=== PATIENT | female | born 1990 | race Hispanic/Latino ===

== ENCOUNTER 2023-11-03 15:39 | Emergency (ER) | payer SELFPAY ==
[2023-11-03 15:47] VITALS: BP 151/92
--- NOTE | 2023-11-03 16:56 | ED.GENMED ---
History of Present Illness
General
Chief Complaint: Skin Problem
Time Seen by Provider: 11/03/23 16:31
Travel History
Have you had any contact with someone who has COVID-19?: No
Do you have any symptoms of coronavirus? Fever > 100 degrees, chills, cough, shortness of breath, sore throat, loss of taste or smell, muscle aches, or headache?: No
History of Present Illness
History of Present Illness:
33-year-old female presents the emergency department for evaluation of acute on chronic rash to bilateral hands and forearms. She has had this rash for many years and typically uses a steroid cream however the cream is not helping. Primary care is
through the [facility] [place] [facility]. Has never seen a electrolysis engineer
Past History
Past History
ED Past Medical History: HTN
ED Past Surgical History: None
Social History
Tobacco: Non-smoker
Alcohol: None
Drug: None
Personal:
Living: with family
Employment: Other
Family History
Family History: Other
Review of Systems
Review of Systems
Allergies reviewed?: Yes
All Other Systems: ROS reviewed and negative except as documented in HPI and ROS
Phy Exam
Physical Exam
Physical Exam:
GEN: Well appearing, NAD, WDWN
HEENT: Oral mucosa moist, no scleral icterus
Cardiac: Regular rate
Lung: No respiratory distress, no tachypnea
MSK: No gross deformity or injuries
Skin: Good color, no pallor or jaundice, eczematous skin eruption to bilateral dorsal hands and bilateral extensor elbows surfaces
Neuro: AO x3, moves all extremities freely
Psych: Calm, cooperative
Course
Vital Signs
Initial and Last Documented VS:
Initial Vital Signs
Temp Pulse Resp BP Pulse Ox
98.4 F 67 20 151/92 97
11/03/23 15:47 11/03/23 15:47 11/03/23 15:47 11/03/23 15:47 11/03/23 15:47
Last Documented Vital Signs
Temp Pulse Resp BP Pulse Ox
98.4 F 67 20 151/92 97
11/03/23 15:47 11/03/23 15:47 11/03/23 15:47 11/03/23 15:47 11/03/23 15:47
MDM/Problems Addressed
MDM/Problems Addressed:
Suspect this is dyshidrotic eczema, will prescribe steroid
*Critical Care Note
Total Time (30-74mins, 75-104mins- exclusive of procedures): Not Applicable
ED Attending Note
-
Portions of this chart may have been created with voice recognition software.� Occasional wrong word or��sound alike� substitutions may have occurred due to the inherent limitations of voice recognition software.
Discharge Plan
Departure
Patient Disposition: Home (Routine Discharge)
Date of Disposition: 11/03/23
Time of Disposition: 16:56
Patient with high blood pressure during this ER visit?: No
Discharge Problem:
Dyshidrotic eczema
Instructions: Eczema (atopic dermatitis)
Prescriptions:
New
betamethasone dipropionate 0.05 % ointment
1 applic topical BID 7 Days Qty: 45 0RF
No Action
Control Pill
1 tab PO DAILY
Interventions
Interventions:
*Risk Screen - Suicide Last Done: 11/03/23 15:47
*General Assessment Last Done: 11/03/23 15:47
*Neglect/Abuse Screening Last Done: 11/03/23 15:47
*ED COVID-19 Vaccine History Last Done: 11/03/23 17:40
*Nursing Disposition Last Done: 11/03/23 17:40
ED-Skin Assessment Last Done: 11/03/23 17:39
Discharge Date and Time
Discharge Date/Time: 11/03/23 17:42
Print Language: SLOVENIAN
== END 2023-11-03 17:42 | disposition home or self-care (01) ==
LOC: EMR 15:39
PROVIDERS: EMERGENCY PHYSICIAN Emergency Medicine; FAMILY PHYSICIAN Physician Assistant Medical
DX: L30.1 Dyshidrosis [pompholyx] (principal); I10 Essential (primary) hypertension
CPT/HCPCS: 99283

== ENCOUNTER → 2023-11-18 08:05 | Outpatient (REF) | payer OTHER, SELFPAY ==
[2023-11-18 10:15] LABS: ALT (SGPT) 39 U/L (0-35); AST (SGOT) 38 U/L (14-36); Albumin 4.3 g/dl (3.5-5.0); Alkaline Phosphatase 76 U/L (38-126); Blood Urea Nitrogen 12 mg/dl (7-17); Calcium 9.5 mg/dl (8.4-10.2); Carbon Dioxide 26 mmol/L (22-30); Chloride 101 mmol/L (98-107); GGTP 36 U/L (12-43); Glucose 100 mg/dl (70-99); Potassium 4.2 mmol/L (3.5-5.1); Sodium 138 mmol/L (135-145); Total Bilirubin 0.5 mg/dl (0.2-1.3); Total Protein 7.7 g/dl (6.3-8.2); eGFR > 60.00
[2023-11-18 10:31] LABS: Vitamin D, 25-OH*** 26.3 ng/mL (30-80)
[2023-11-18 11:05] LABS: Glycohemoglobin (HgbA1c) 6.1 % (4.0-5.6)
== END ==
LOC: REG 08:05
PROVIDERS: ATTENDING PHYSICIAN Nurse Practitioner Adult Health
DX: E55.9 Vitamin D deficiency, unspecified (principal); R73.03 Prediabetes; R74.8 Abnormal levels of other serum enzymes
CPT/HCPCS: 80053; 82306; 82977; 83036

== ENCOUNTER → 2024-02-24 07:01 | Outpatient (REF) | payer OTHER, SELFPAY ==
[2024-02-24 09:06] LABS: ALT (SGPT) 46 U/L (0-35); AST (SGOT) 43 U/L (14-36); Albumin 4.5 g/dl (3.5-5.0); Alkaline Phosphatase 75 U/L (38-126); Blood Urea Nitrogen 14 mg/dl (7-17); Calcium 9.5 mg/dl (8.4-10.2); Carbon Dioxide 24 mmol/L (22-30); Chloride 102 mmol/L (98-107); Glucose 112 mg/dl (70-99); Potassium 4.2 mmol/L (3.5-5.1); Sodium 139 mmol/L (135-145); Total Bilirubin 0.4 mg/dl (0.2-1.3); Total Protein 7.7 g/dl (6.3-8.2); eGFR > 60.00
== END ==
LOC: CLINIC 07:01
PROVIDERS: ATTENDING PHYSICIAN Nurse Practitioner Adult Health
DX: R74.8 Abnormal levels of other serum enzymes (principal); I10 Essential (primary) hypertension
CPT/HCPCS: 36415; 80053

== ENCOUNTER 2024-09-21 00:09 | Emergency (ER) | payer SELFPAY ==
[2024-09-21] VITALS (7 sets, daily range): BP systolic 114–162; BP diastolic 55–110; BMI 31.6
[2024-09-21 00:27] LABS: Urine Albumin 2+ (Neg - Trace); Urine Bilirubin Negative (Negative); Urine Character Slightly Cloudy (Clear); Urine Color Yellow; Urine Glucose Negative (Negative); Urine Ketone Negative (Negative); Urine Leukocyte 3+ (Negative); Urine Nitrite Negative (Negative); Urine Occult Blood 4+ (Negative); Urine Specific Gravity 1.015 (<1.030); Urine Urobilinogen Negative (Neg - 1+)
[2024-09-21 00:41] LABS: Urine Squamous Cell >30 /LPF (Few)
[2024-09-21 00:45] LABS: Urine Bacteria Few (Negative); Urine Red Blood Cell 26-30 /HPF (0-2); Urine White Cell 50-60 /HPF (0-5)
[2024-09-21 01:51] LABS: % Basophils 0.3 % (0-2); % Eosinophils 1.5 % (0-6); % Immature Granulocytes 0.2 % (0-0.5); % Monocytes 7.1 % (1.7-9.3); % Neutrophils 66.9 % (42.2-75.2); Absolute Eosinophils 0.1 10^3/uL (0-0.7); Absolute Lymphocytes 1.5 10^3/uL (1.2-3.4); Absolute Monocytes 0.4 10^3/uL (0.1-0.6); Hematocrit 35.1 % (37.0-47.0); Hemoglobin 12.2 g/dL (12.0-16.0); Mean Corp Hgb Conc. 34.8 g/dL (33.0-37.0); Mean Corpuscular Hgb 29.5 pg (27.0-31.0); Mean Corpuscular Volume 84.8 fL (81.0-99.0); Mean Platelet Volume 9.4 fL (7.4-10.4); Nucleated Red Blood Cells % 0 %; Platelet Count 239 10^3/uL (130-400); Red Blood Cell Count 4.14 10^6/uL (4.20-5.40); Red Cell Dist. Width 12.8 % (11.5-14.5)
[2024-09-21 01:56] LABS: ALT (SGPT) 98 U/L (0-35); AST (SGOT) 64 U/L (14-36); Alkaline Phosphatase 94 U/L (38-126); Blood Urea Nitrogen 10 mg/dl (7-17); Calcium 9.4 mg/dl (8.4-10.2); Carbon Dioxide 26 mmol/L (22-30); Chloride 105 mmol/L (98-107); Estimated Creatinine Clearance > 125 ml/min; Glucose 119 mg/dl (70-99); Potassium 3.6 mmol/L (3.5-5.1); Sodium 141 mmol/L (135-145); Total Bilirubin 0.4 mg/dl (0.2-1.3); eGFR > 60.00
[2024-09-21] MEDS: TORADOL 15 MG IV (01:56)
[2024-09-21] MEDS: NSS 1000 IV (01:56)
[2024-09-21 01:58] LABS: Lactic Acid 1.1 mmol/L (0.7-2.0)
[2024-09-21 02:03] LABS: HCG, Serum Qualitative Screen Negative
--- NOTE | 2024-09-21 02:19 | ED.GENMED ---
Addendum entered and electronically signed by Arnie Redman PA-C 09/23/24 07:00:
Pulmonary urine culture shows greater than 100,000 colony-forming units of E. coli. Patient on Omnicef. Sensitivities pending
Original Note:
History of Present Illness
<Vera Roberts DO - Last Filed: 09/21/24 14:08>
General
Chief Complaint: Flank Pain
Time Seen by Provider: 09/21/24 00:32
History of Present Illness
History of Present Illness:
33-year-old female without significant past medical history presenting to the emergency department for right-sided abdominal pain and back pain, which started yesterday. Also notes fever and dysuria. Denies any history of urinary tract infections
or kidney infections. Denies any vaginal discharge. Denies chest pain, difficulty breathing, cough. Denies any vomiting. Denies social acute medical complaints
Past History
<Vera Roberts DO - Last Filed: 09/21/24 14:08>
Past History
ED Past Medical History: HTN
ED Past Surgical History: None
Social History
Tobacco: Non-smoker
Alcohol: None
Drug: None
Personal:
Living: with family
Employment: Other
Family History
Family History: Other
Phy Exam
<Vera Roberts DO - Last Filed: 09/21/24 14:08>
Physical Exam
Physical Exam:
General: Well-appearing, no clinical signs of dehydration, nontoxic and in no acute distress
HEENT: protecting airway
Neck: appears supple
CV: Normal heart rate, regular rhythm
Resp: No accessory muscle use, no increased work of breathing, lungs clear to auscultation bilaterally
Abd: Soft and non-distended, mild tenderness to the suprapubic abdomen, mild right CVA tenderness
Extremities: No deformities, no swelling, no erythema, pulses and sensation intact
Neuro: alert, no focal neurologic deficit
: deferred
Rectal: deferred
Psych: Normal affect
Skin: Intact
Course
<Vera Roberts, DO - Last Filed: 09/21/24 14:08>
Orders/Labs/Results
Orders:
Orders
09/21/24 00:20
Urinalysis Reflex To Culture Urgent
Date Specimen was Collected: 09/21/24
Time Specimen was Collected: 00:18
Urine Microscopic Reflex Cult Urgent
Urine Culture Urgent
ROSA Source: U
Specimen Description:
Date Specimen was Collected: 09/21/24
Time Specimen was Collected: 00:18
09/21/24 01:23
0.9% Sodium Chloride 1000 ml [Nss] 1,000 ml IV BOLUS
Ketorolac [Toradol] 15 mg IV NOW STA
09/21/24 01:24
Test Result ONCE
09/21/24 01:25
CT Abd/pelvis W Iv Cont Urgent
Comment:
Reason For Exam: right flank pain, urine symptoms, c/o pyelo
09/21/24 01:34
Complete Blood Count/With Diff Urgent
Comprehensive Metabolic Panel Urgent
HCG, Serum Qualitative Screen Urgent
Lactic Acid Q4H
Comment: CANCEL 2nd LACTIC ACID IF 1st LACTIC ACID IS LESS THAN 2
09/21/24 04:02
Cefdinir [Omnicef] 300 mg PO NOW STA
Diphenhydramine [Benadryl] 25 mg PO NOW STA
Abnormal Lab Results
09/21/24 09/21/24
00:20 01:34
RBC 4.14 L 10^6/uL
(4.20-5.40)
Hct 35.1 L %
(37.0-47.0)
Glucose 119 H mg/dl
(70-99)
AST 64 H U/L
(14-36)
ALT 98 H U/L
(0-35)
Ur Occult Blood Reflex 4+ A
(Negative)
Leukocyte Esterase Rfl 3+ A
(Negative)
Urine RBC 26-30 A /HPF
(0-2)
Urine WBC (Reflex) 50-60 A /HPF
(0-5)
Urine Bacteria (Reflex) Few A
(Negative)
Urine Albumin (Reflex) 2+ A
(Neg - Trace)
09/21/24 01:34
09/21/24 01:34
Vital Signs
Initial and Last Documented VS:
Initial Vital Signs
Temp Pulse Resp BP Pulse Ox
99.9 F 104 18 162/110 98
09/21/24 00:11 09/21/24 00:11 09/21/24 00:11 09/21/24 00:11 09/21/24 00:11
Last Documented Vital Signs
Temp Pulse Resp BP Pulse Ox
98.3 F 77 18 114/55 98
09/21/24 02:36 09/21/24 03:00 09/21/24 03:00 09/21/24 02:36 09/21/24 02:36
<Rony Saleem MD - Last Filed: 09/21/24 04:03>
Orders/Labs/Results
Orders:
Orders
09/21/24 00:20
Urinalysis Reflex To Culture Urgent
Date Specimen was Collected: 09/21/24
Time Specimen was Collected: 00:18
Urine Microscopic Reflex Cult Urgent
Urine Culture Urgent
ROSA Source: U
Specimen Description:
Date Specimen was Collected: 09/21/24
Time Specimen was Collected: 00:18
09/21/24 01:23
0.9% Sodium Chloride 1000 ml [Nss] 1,000 ml IV BOLUS
Ketorolac [Toradol] 15 mg IV NOW STA
09/21/24 01:24
Test Result ONCE
09/21/24 01:25
CT Abd/pelvis W Iv Cont Urgent
Comment:
Reason For Exam: right flank pain, urine symptoms, c/o pyelo
09/21/24 01:34
Complete Blood Count/With Diff Urgent
Comprehensive Metabolic Panel Urgent
HCG, Serum Qualitative Screen Urgent
Lactic Acid Q4H
Comment: CANCEL 2nd LACTIC ACID IF 1st LACTIC ACID IS LESS THAN 2
09/21/24 04:02
Cefdinir [Omnicef] 300 mg PO NOW STA
Diphenhydramine [Benadryl] 25 mg PO NOW STA
Abnormal Lab Results
09/21/24 09/21/24
00:20 01:34
RBC 4.14 L 10^6/uL
(4.20-5.40)
Hct 35.1 L %
(37.0-47.0)
Glucose 119 H mg/dl
(70-99)
AST 64 H U/L
(14-36)
ALT 98 H U/L
(0-35)
Ur Occult Blood Reflex 4+ A
(Negative)
Leukocyte Esterase Rfl 3+ A
(Negative)
Urine RBC 26-30 A /HPF
(0-2)
Urine WBC (Reflex) 50-60 A /HPF
(0-5)
Urine Bacteria (Reflex) Few A
(Negative)
Urine Albumin (Reflex) 2+ A
(Neg - Trace)
09/21/24 01:34
09/21/24 01:34
Vital Signs
Initial and Last Documented VS:
Initial Vital Signs
Temp Pulse Resp BP Pulse Ox
99.9 F 104 18 162/110 98
09/21/24 00:11 09/21/24 00:11 09/21/24 00:11 09/21/24 00:11 09/21/24 00:11
Last Documented Vital Signs
Temp Pulse Resp BP Pulse Ox
98.3 F 77 18 114/55 98
09/21/24 02:36 09/21/24 03:00 09/21/24 03:00 09/21/24 02:36 09/21/24 02:36
<Vera Roberts DO - Last Filed: 09/21/24 14:08>
MDM/Problems Addressed
MDM/Problems Addressed:
43-year-old female presenting for dysuria, abdominal pain, fevers at home. Vital signs on arrival significant for hypertension, mild tachycardia and low-grade temperature. Blood pressure resolved without intervention.
On exam patient is resting comfortably, nontoxic. Presentation and physical exam concerning for urinary tract infection versus ascending infection versus pyelonephritis. Given patient's tenderness on exam and CVA tenderness, will plan for
laboratory analysis, urinalysis, CT abdominal imaging. Will start patient IV fluids.
03:00 -urine does show evidence of infection. No leukocytosis, normal lactic acid without concern for sepsis. Pending CT abdominal imaging.
<Vera Roberts DO - Last Filed: 09/21/24 14:08>
*Critical Care Note
Total Time (30-74mins, 75-104mins- exclusive of procedures): Not Applicable
<Rony Saleem MD - Last Filed: 09/21/24 04:03>
Update Note
Update Note:
CT report reviewed and discussed with patient. Per signout, patient will be treated for UTI versus pyelonephritis. Patient will be started on Omnicef, with recommendation to follow-up PCP for reevaluation. Patient otherwise is afebrile,
hemodynamically stable, and nontoxic-appearing at time of discharge.
ED Attending Note
<Vera Roberts DO - Last Filed: 09/21/24 14:08>
-
Portions of this chart may have been created with voice recognition software.� Occasional wrong word or��sound alike� substitutions may have occurred due to the inherent limitations of voice recognition software.
Discharge Plan
Departure
Patient Disposition: Home (Routine Discharge)
Date of Disposition: 09/21/24
Time of Disposition: 04:00
Patient with high blood pressure during this ER visit?: Yes
Condition: Good
Discharge Problem:
UTI (urinary tract infection)
Instructions: Urinary tract infection in adults - ED discharge instructions
Prescriptions:
New
cefdinir 300 mg capsule
300 mg PO BID Qty: 13 0RF
No Action
Control Pill
1 tab PO DAILY
betamethasone dipropionate 0.05 % ointment
1 applic topical BID 7 Days Qty: 45 0RF
lisinopril 5 mg Tablet
5 mg PO DAILY
Referrals:
NONE,* [Family Provider] -
Activity Restrictions/Additional Instructions:
Discussed, please follow-up with your primary care physician for reevaluation. Please consider return to ED with worsening symptoms. Your prescription has been sent electronically to [facility] pharmacy in [place].
Interventions
Interventions:
*Risk Screen - Suicide Last Done: 09/21/24 00:11
*General Assessment Last Done: 09/21/24 00:55
*Neglect/Abuse Screening Last Done: 09/21/24 00:55
*ED- Fall Risk Assessment Last Done: 09/21/24 00:55
*ED COVID-19 Vaccine History Last Done: 09/21/24 00:55
*Nursing Disposition Last Done: 09/21/24 04:30
HP-Zqqang-Bguaedmomu Assessment Last Done: 09/21/24 00:55
ED-Female Genitourinary Assessment Last Done: 09/21/24 00:55
Discharge Date and Time
Discharge Date/Time: 09/21/24 04:30
Print Language: EMIRATI
[2024-09-21] MEDS: OMNICEF 300 MG PO (04:22)
[2024-09-21] MEDS: BENADRYL 25 MG PO (04:22)
== END 2024-09-21 04:30 | disposition home or self-care (01) ==
LOC: EMR 00:09
PROVIDERS: Student in an Organized Health Care Education/Training Program; EMERGENCY PHYSICIAN Emergency Medicine
DX: N39.0 Urinary tract infection, site not specified (principal); I10 Essential (primary) hypertension
CPT/HCPCS: 96374; 96361; 99284; 74177; 80053; 81003; 81015; 83605; 84703; 85025; 87077; 87086; 87186; Q9967

== ENCOUNTER → 2024-09-21 09:14 | Outpatient (REF) | payer OTHER, SELFPAY ==
[2024-09-21 10:44] LABS: ALT (SGPT) 86 U/L (0-35); AST (SGOT) 47 U/L (14-36); Albumin 3.8 g/dl (3.5-5.0); Alkaline Phosphatase 69 U/L (38-126); Blood Urea Nitrogen 8 mg/dl (7-17); Calcium 9.1 mg/dl (8.4-10.2); Carbon Dioxide 27 mmol/L (22-30); Chloride 106 mmol/L (98-107); Glucose 92 mg/dl (70-99); Sodium 141 mmol/L (135-145); Total Bilirubin 0.4 mg/dl (0.2-1.3); Total Protein 6.7 g/dl (6.3-8.2); eGFR > 60.00
== END ==
LOC: REG 09:14
PROVIDERS: ATTENDING PHYSICIAN Nurse Practitioner Adult Health
DX: I10 Essential (primary) hypertension (principal); R74.8 Abnormal levels of other serum enzymes
CPT/HCPCS: 80053

== ENCOUNTER → 2024-10-05 08:42 | Outpatient (REF) | payer OTHER, SELFPAY ==
[2024-10-05 10:04] LABS: Urine Albumin Negative (Neg - Trace); Urine Bilirubin Negative (Negative); Urine Character Clear (Clear); Urine Color Yellow; Urine Glucose Negative (Negative); Urine Ketone Negative (Negative); Urine Leukocyte Negative (Negative); Urine Nitrite Negative (Negative); Urine Occult Blood 1+ (Negative); Urine Urobilinogen Negative (Neg - 1+)
[2024-10-05 10:59] LABS: Urine White Cell None Seen /HPF (0-5)
== END ==
LOC: REG 08:42
PROVIDERS: ATTENDING PHYSICIAN Nurse Practitioner Adult Health
DX: N39.0 Urinary tract infection, site not specified (principal)
CPT/HCPCS: 81003; 81015

== ENCOUNTER → 2024-11-22 09:54 | Outpatient (REF) | payer OTHER, SELFPAY ==
[2024-11-22 10:24] LABS: Urine Albumin Negative (Neg - Trace); Urine Bilirubin Negative (Negative); Urine Character Slightly Cloudy (Clear); Urine Color Yellow; Urine Glucose Negative (Negative); Urine Ketone Negative (Negative); Urine Leukocyte 1+ (Negative); Urine Nitrite Positive (Negative); Urine Occult Blood 2+ (Negative); Urine Urobilinogen Negative (Neg - 1+)
[2024-11-22 10:49] LABS: Urine Mucus Many; Urine Squamous Cell >30 /LPF (Few)
[2024-11-22 10:53] LABS: Urine Amorphous Seen
[2024-11-22 10:54] LABS: Urine Bacteria Many (Negative)
== END ==
LOC: CLINIC 09:54
PROVIDERS: ATTENDING PHYSICIAN Nurse Practitioner Adult Health
DX: R31.29 Other microscopic hematuria (principal)
CPT/HCPCS: 81003; 81015; 87077; 87086; 87186

== ENCOUNTER → 2024-11-25 15:40 | Outpatient (REF) | payer OTHER, SELFPAY ==
[2024-11-29 06:53] LABS: HPV, High Risk Not Detected; HPV, High Risk Source Cervical
== END ==
LOC: CLINIC 15:40
PROVIDERS: ATTENDING PHYSICIAN Nurse Practitioner Adult Health
DX: Z01.419 Encounter for gynecological examination (general) (routine) without abnormal findings (principal)
CPT/HCPCS: 87491; 87591; 87624